=== PATIENT | male | born 1965 | race Two or more races ===

== ENCOUNTER 2017-12-23 13:25 | Outpatient (CLI) | payer OTHER | END 2017-12-23 13:26 | disposition home or self-care (01) | LOC: SC 13:25 | PROVIDERS: ATTEND Internal Medicine Pulmonary Disease | DX: G47.33 Obstructive sleep apnea (adult) (pediatric) (principal) | CPT/HCPCS: 99212; 99213 ==

== ENCOUNTER 2019-02-16 14:04 | Outpatient (CLI) | payer OTHER | END 2019-02-16 14:05 | disposition home or self-care (01) | LOC: SC 14:04 | PROVIDERS: ATTEND Internal Medicine Pulmonary Disease | DX: G47.33 Obstructive sleep apnea (adult) (pediatric) (principal) | CPT/HCPCS: 99212; 99213 ==

== ENCOUNTER 2019-04-20 14:17 | Outpatient (CLI) | payer OTHER ==
--- NOTE | 2019-04-20 16:42 | CONSULTATION NOTE ---
Information from patient questionnaire entered by Tasneem Marroquin. I have reviewed and concur with the information entered by Tasneem Marroquin. This document represents the service I personally performed and the decisions made by me, Kat Birmingham MD, [facility]. - History of Present Illness HPI: Mr. Marin was diagnosed to have moderate (AHI = 27.7) obstructive sleep apnea- hypopnea syndrome and returns today for annual follow up of CPAP therapy. The patient purchased the device from [employer] and was fitted with a ResMed A irTouch F-20 full face mask. He would like to switch company at this time. He continues to use the device nightly but not all the night. He thinks that the pressure of 5 - 15 cmH2O is comfortable (increased from 5 - 12 cmH2O two months ago for an elevated residual AHI of 7.9). On the CPAP therapy he notices improvement in his sleep quality, and that he wakes up feeling fresher in the morning and more awake/alert during the day. The average residual AHI is 9.7 (was 7.9); and large leak, 0 seconds a night. Equipment obtained from: [employer] - Compliance Data Reviewed with Patient Current pressure setting (cmH2O): 5-12 cmH2O Humidity settin Heated hose settin - Subjective Patient concerns: air blowing in eyes, dry mouth, nose, throat Initial Vanlue Sleepiness Scale score: 15 - Review of Systems Review of systems same as previous: Yes - Impression 1. Obstructive Sleep Apnea-Hypopnea Syndrome, moderate, with the patient continuing to have good compliance. The new autoCPAP setting is not any effective, most likely because the 90th percentile pressure remains about the same. To make the pressure go up, I will set his autoCPAP at 10 15 cmH2O. Because the patient would like to switch durable medical supplier, I will issue him a new prescription for supplies. - Plan Plan: 1. Raise autoCPAP to 10 - 15 cm H2O. 2. Prescription made for an oral appliance. 3. Prescription made for supplies so that he may switch durable medical supplier. 4. Try other full face masks, e.g. ResMed AirTouch Respironics DreamWear full face mask, and ResMed F30 full face mask. 5. Return for follow up in two months. This visit is time-based and I spent 15 minutes with the patient and more than 50% of the time was spent counseling the patient.
== END 2019-04-20 14:18 | disposition home or self-care (01) ==
LOC: SC 14:17
PROVIDERS: ATTEND Internal Medicine Pulmonary Disease
DX: G47.33 Obstructive sleep apnea (adult) (pediatric) (principal)
CPT/HCPCS: 99212; 99213

== ENCOUNTER 2019-04-23 23:31 | Emergency (ER) | payer OTHER ==
--- NOTE | 2019-04-24 00:06 | ED Physician Documentation ---
PD HPI HEAD INJURY - Stated complaint Stated Complaint: HEAD INJ - Chief complaint Chief Complaint: Laceration - History obtained from History obtained from: Patient - History of Present Illness Mechanism of head injury: Blow (He states he was working with a horse at home and he was bending over near it and it kicked and hit him in the head. He denied any loss of consciousness. He was dazed momentarily. There is no blurred vision ataxia no nausea. He has a laceration on the frontal scalp that was bleeding briskly. He applied direct pressure and came here immediately. 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) Location of injury: Right, Front Quality of pain: Throbbing, Aching Associated symptoms: No: LOC, AMS, Nausea / vomiting, Neck pain Symptoms worsen with: Palpation Contributing factors: No: Anticoagulated, Intoxicated Similar symptoms before: Has not had sx before Review of Systems Constitutional: denies: Fever Nose: denies: Rhinorrhea / runny nose, Congestion Throat: denies: Sore throat Respiratory: denies: Cough GI: denies: Nausea, Vomiting, Diarrhea Skin: reports: Laceration (s) (just today) Neurologic: denies: Focal weakness, Numbness, Confused, Altered mental status PD PAST MEDICAL HISTORY - Past Medical History Past Medical History: No Cardiovascular: Hypertension Respiratory: None Neuro: None Endocrine/Autoimmune: Type 2 diabetes GI: None : None HEENT: None Psych: None Musculoskeletal: None Derm: None - Past Surgical History Past Surgical History: No - Present Medications Home Medications: Ambulatory Orders Medication Instructions Recorded Confirmed Lisinopril 1 tab ORAL DAILY 04/08/19 04/08/19 Metformin HCl 1 tab ORAL BID 04/08/19 04/08/19 - Allergies Allergies/Adverse Reactions: Allergies Allergy/AdvReac Type Severity Reaction Status Date / Time No Known Drug Allergies Allergy Verified 04/23/19 23:45 - Social History Does the pt smoke?: Yes Smoking Status: Current every day smoker Does the pt drink ETOH?: Yes Does the pt have substance abuse?: No - Immunizations Immunizations are current?: Yes - POLST Patient has POLST: No PD ED PE NORMAL - Vitals Vital signs reviewed: Yes - General General: Alert and oriented X 3, No acute distress, Well developed/nourished - HEENT HEENT: PERRL, EOMI, Other (right frontal scalp with 3 cm lac withut FB. No bbleeding on arrival with direct pressure and dressing on it. 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, No motor deficit, No sensory deficit, Normal speech, Other Eye Opening: Spontaneous Motor: Obeys Commands Verbal: Oriented GCS Score: 15 - Psych Psych: Normal mood, Normal affect Results - Vitals Vitals: Vital Signs - 24 hr 04/23/19 04/24/19 23:37 00:55 Temperature 36.9 C Heart Rate 101 H 92 Respiratory 16 18 Rate Blood Pressure 152/87 H 130/74 O2 Saturation 95 92 Oxygen O2 Source Room air Procedures - Laceration (location) right frontal scalp Length in cm: 3 Wound type: Linear, Into subcut fat, Clean Anesthesia: Lidocaine 1% with epi Wound Preparation: Wound explored, To the base, Other (bleeding started again with cleaning wound. Stopped with subcut layer stitch.). No: FB identified Deep layer closure: Vicryl, size #-0 - enter number (6), # sutures - enter number (3) Skin layer closure: Nylon, Running, Size #-0 - enter number (6), Sutures - enter # (17) Other: Patient tolerated well, No complications, Dressing applied, Tetanus UTD PD MEDICAL DECISION MAKING - ED course Complexity details: considered differential (No concussive symptoms. He does have a scalp laceration in the upper frontal area but is bald in that area so did a cosmetic closure with 6-0 nylon with good closure.), d/w patient Departure - Departure Disposition: 01 Home, Self Care Clinical Impression: Head contusion Qualifiers: Encounter type: initial encounter Contusion of head detail: scalp Qualified Code(s): S00.03XA - Contusion of scalp, initial encounter Scalp laceration Qualifiers: Encounter type: initial encounter Qualified Code(s): S01.01XA - Laceration without foreign body of scalp, initial encounter Condition: Stable Record reviewed to determine appropriate education?: Yes Instructions: ED Laceration Scalp Stitch Or Stap Follow-Up: KING,CASTILLO M, DO [Primary Care Provider] - Comments: I would anticipate some localized headache where you were injured and perhaps even some feeling of lightheadedness for a day or 2. Tylenol or ibuprofen or naproxen as needed for pains. Return if signs of concussion such as confusion, off balance, nausea and vomiting, blurred vision, worsening headache, other concerns. It is okay to wash and shower. Clean off the wound twice a day with soap and water, or peroxide and water. Apply some antibiotic ointment to it to keep it moist. Also to watch for signs of infection such as purulence, redness or increasing pain. Return to your primary care or the ER at the specified time for suture removal. Suture removal 8 to 10 days. Discharge Date/Time: 04/24/19 00:55
[2019-04-24] MEDS ORDERED: IBUPROFEN 600 MG TABLET PO STA (00:42)
[2019-04-24] MEDS ORDERED: ACETAMINOPHEN 325 MG TABLET PO STA (00:42)
[2019-04-24 01:03] VITALS: BP 130/74
== END 2019-04-24 00:55 | disposition home or self-care (01) ==
LOC: ED 23:31
DX: S01.01XA Laceration without foreign body of scalp, initial encounter (principal); W55.12XA Struck by horse, initial encounter; Y93.F9 Activity, other caregiving; Y92.009 Unspecified place in unspecified non-institutional (private) residence as the place of occurrence of the external cause; I10 Essential (primary) hypertension; E11.9 Type 2 diabetes mellitus without complications; Z79.84 Long term (current) use of oral hypoglycemic drugs; F17.200 Nicotine dependence, unspecified, uncomplicated
CPT/HCPCS: 12032; 99282; A9270

== ENCOUNTER 2020-01-06 10:28 | Emergency (ER) | payer OTHER ==
[2020-01-06 10:51] VITALS: BP 150/65
--- NOTE | 2020-01-06 11:29 | ED Physician Documentation ---
PD HPI LOWER EXT INJURY - Stated complaint Stated Complaint: LT ANKLY INJURY - Chief complaint Chief Complaint: Trauma Ext - History obtained from History obtained from: Patient - Additional information Additional information: Patient comes emergency department complaining of left ankle pain and right small toe pain. Patient states the ankle pain began this morning when he walked out to the mailbox and twisted his left ankle. He states that he felt a "crack" and had instant pain around the lateral malleoli area. Patient states that it does not hurt if he is holding still but that when he bears weight, or has direct pressure applied to the area, he has a sharp pain. Patient denies any other injuries today. He states he is sprained his ankle many times but never had a fracture. He states his right small toe has been hurting for the last month since a 1700 pound horse stepped on it. The patient states that he noticed swelling and pain in the toe and that he wanted to come get it checked out, but because of clinic closures and concerns over coronavirus, he decided not to come in, thinking it would just get better. However, he has continued to have ongoing swelling and sharp pain in the toe and wonders if indeed it was fractured. Patient denies any other complaints at this time. Review of Systems Ten Systems: 10 systems reviewed and negative Constitutional: reports: Reviewed and negative Eyes: reports: Reviewed and negative Ears: reports: Reviewed and negative Nose: reports: Reviewed and negative Throat: reports: Reviewed and negative Cardiac: reports: Reviewed and negative Respiratory: reports: Reviewed and negative GI: reports: Reviewed and negative : reports: Reviewed and negative Skin: reports: Reviewed and negative Musculoskeletal: reports: Extremity pain, Extremity swelling Neurologic: reports: Reviewed and negative Psychiatric: reports: Reviewed and negative Endocrine: reports: Reviewed and negative Immunocompromised: reports: Reviewed and negative PD PAST MEDICAL HISTORY - Past Medical History Past Medical History: Yes Cardiovascular: Hypertension Respiratory: None Neuro: None Endocrine/Autoimmune: Type 2 diabetes GI: None : None HEENT: None Psych: None Musculoskeletal: None Derm: None - Past Surgical History Past Surgical History: No - Present Medications Home Medications: Ambulatory Orders Medication Instructions Recorded Confirmed Metformin HCl 1 tab ORAL BID 04/08/19 01/06/20 lisinopriL [Lisinopril] 1 tab ORAL DAILY 04/08/19 01/06/20 - Allergies Allergies/Adverse Reactions: Allergies Allergy/AdvReac Type Severity Reaction Status Date / Time No Known Drug Allergies Allergy Verified 01/06/20 10:50 - Social History Does the pt smoke?: Yes Smoking Status: Current every day smoker Does the pt drink ETOH?: Yes Does the pt have substance abuse?: No - Immunizations Immunizations are current?: Yes - POLST Patient has POLST: No PD ED PE NORMAL - Vitals Vital signs reviewed: Yes - General General: Alert and oriented X 3, No acute distress - HEENT HEENT: Atraumatic, PERRL, EOMI, Moist mucous membranes - Neck Neck: Supple, no meningeal sign - Cardiac Cardiac: Strong equal pulses - Respiratory Respiratory: No respiratory distress - Derm Derm: Normal color, Warm and dry, No rash, Other (No contusion) - Extremities Extremities: No deformity, Other (Patient has tenderness to palpation on the inferior aspect of his left Lateral malleolus. There is no deformity. Mild swelling. Patient has no tenderness over any of the other structures of his left foot or ankle. No step-off or deformity. Patient has moderate edema and generalized tenderness of his right small toe. No contusion.No deformity. No other right foot abnormalities. 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, No motor deficit, No sensory deficit, Normal speech - Psych Psych: Normal mood, Normal affect Results - Vitals Vitals: Vital Signs - 24 hr 01/06/20 10:47 Temperature 36.6 C Heart Rate 86 Respiratory 16 Rate Blood Pressure 150/65 H O2 Saturation 98 Oxygen O2 Source Room air - Rads (name of study) Left ankle x-ray Radiology: Final report received, EMP read indepedently, See rad report (Normal ankle) Right foot x-ray series Radiology: Final report received, EMP read indepedently, See rad report (Transverse fracture distal phalanx right small toe.) PD MEDICAL DECISION MAKING - ED course Complexity details: reviewed results, re-evaluated patient, considered differential, d/w patient ED course: Patient was worked up with x-rays of the left ankle and right foot. The left ankle x-ray was negative, but the right foot x-ray showed a fracture through the distal phalanx of the right small toe. I discussed the findings with the patient. We have given him an air cast for the left ankle, on which he may bear weight as tolerated and use crutches as needed. I have advised him that he may leave off use of the air cast when his ankle is feeling better. We have also discussed the need to limit high-impact or rotational forces on the ankle until it is completely feeling better. As far as the patient's toe fracture, I have discussed with him that at this point, there is no union between the bone ends. We have placed him in a postop shoe today, and I have advised him that he will need to wear this for some weeks to allow his toe to heal. I have given him the number for the [facility] in [place], where he should follow-up with Dr. Reyes. I have advised him to call in the next couple of days to make an appointment for this. Patient may also weight-bear as tolerated on his right foot, and should use the cast shoe for any ambulatory activities. Departure - Departure Disposition: 01 Home, Self Care Clinical Impression: Left ankle sprain Qualifiers: Encounter type: initial encounter Involved ligament of ankle: unspecified ligament Qualified Code(s): S93.402A - Sprain of unspecified ligament of left ankle, initial encounter Toe fracture, right Qualifiers: Encounter type: initial encounter Toe: lesser toe Fracture type: closed Phalanx: distal Fracture alignment: nondisplaced Qualified Code(s): S92.534A - Nondisplaced fracture of distal phalanx of right lesser toe(s), initial encounter for closed fracture Condition: Stable Instructions: ED Sprain Ankle W X Ray, ED Fx Toe Closed Follow-Up: Benny Reyes, DPM [Physician No Access] - Comments: Your left ankle x-ray looks good. Your right Foot x-ray shows a fracture through your small toe. This has not begun to heal back together at all yet, so it is very important that you wear the hard soled shoe that we have placed today. The most important goal is to keep your small toe from bending to allow the fracture to begin to heal. You will need to follow-up with podiatry as above to be sure that this is healing properly. You should wear the cast shoe that we have given you until you are seen by podiatry. The ankle brace you may wear until your ankle is feeling better. You may use crutches as needed and weight-bear as tolerated. Please refrain from any strenuous, high impact, or tw isting activities involving your left ankle until the ankle is feeling better. Please call the [facility] in [place] to set up an appointment at . Discharge Date/Time: 01/06/20 12:23
--- NOTE | 2020-01-06 11:41 | XRAY Report ---
Reason: pain with WB after twisting injury Procedure Date: 01/06/2020 Accession Number: [id number] / [id number] Procedure: XR - Ankle 3 View LT CPT Code: Final Report FULL RESULT: EXAM: LEFT ANKLE RADIOGRAPHY EXAM DATE: 01/06/2020 11:30 AM. CLINICAL HISTORY: Pain with weightbearing after twisting injury. COMPARISON: None. TECHNIQUE: 3 views. FINDINGS: Bones: Normal. No fractures or bone lesions. Joints: Normal. No ankle joint effusion. No subluxations. The ankle mortise is normally aligned. Soft Tissues: Normal. No soft tissue swelling. IMPRESSION: No fracture identified. RADIA
--- NOTE | 2020-01-06 11:43 | XRAY Report ---
Reason: horse stepped on toe, pain/edema x 1m, not better Procedure Date: 01/06/2020 Accession Number: [id number] / [id number] Procedure: XR - Foot 3 View RT CPT Code: Final Report FULL RESULT: EXAM: RIGHT FOOT RADIOGRAPHY EXAM DATE: 01/06/2020 11:30 AM. CLINICAL HISTORY: Horse stepped on toe, pain/edema x 1 month, not better. COMPARISON: None. TECHNIQUE: 3 views. FINDINGS: There is a transverse fracture at the 5th distal phalanx, without bridging callus. No subcutaneous radiopaque foreign bodies. No fractures detected elsewhere on current study. IMPRESSION: Fracture of the 5th distal phalanx. RADIA
== END 2020-01-06 12:23 | disposition home or self-care (01) ==
LOC: ED 10:28
DX: S92.531A Displaced fracture of distal phalanx of right lesser toe(s), initial encounter for closed fracture (principal); S93.402A Sprain of unspecified ligament of left ankle, initial encounter; X50.1XXA Overexertion from prolonged static or awkward postures, initial encounter; Y93.01 Activity, walking, marching and hiking; Y92.009 Unspecified place in unspecified non-institutional (private) residence as the place of occurrence of the external cause; E11.9 Type 2 diabetes mellitus without complications; I10 Essential (primary) hypertension; F17.200 Nicotine dependence, unspecified, uncomplicated; Z79.84 Long term (current) use of oral hypoglycemic drugs
CPT/HCPCS: 99283; 99284

== ENCOUNTER 2020-07-22 07:59 | Outpatient (CLI) | payer OTHER ==
--- NOTE | 2020-07-22 14:12 | MRI Report ---
PROCEDURE: Shoulder LT W/O INDICATIONS: LT SHOULDER PAIN TECHNIQUE: Noncontrast oblique coronal T2 fast spin echo with fat saturation, oblique sagittal T1 spin echo and T2 fast spin echo with fat saturation, axial T1 spin echo and T2 fast spin echo with fat saturation t hrough the shoulder. COMPARISON: None. FINDINGS: Image quality: Diagnostic. Rotator cuff: There is mild tendinopathy of the supraspinatus and infraspinatus with minimal articula r sided partial thickness tearing at the insertion of the infraspinatus. The subscapularis and teres minor appear intact. No rotator cuff muscle atrophy on sagittal images. Bones and bursae: No bone marrow contusions or fractures. There is moderate acromioclavicular joint degeneration. The acromion demonstrates conventional anatomy, without an os acromiale. Trace subacro mial/subdeltoid bursal fluid is present. Capsule and soft tissues: In the absence of intra-articular contrast, the labrum and glenohumeral li gaments are incompletely evaluated. The posterosuperior labrum is diminutive in appearance suggestive of degenerative tearing. The anterior and posterior inferior glenohumeral ligaments are thickened an d intermediate in signal with associated ligamentous edema along the axillary pouch. The findings may represent sequelae of moderate sprains. The long head of the biceps tendon demonstrates normal locat ion and morphology. There is mild indistinct edema in the rotator interval. IMPRESSION: 1. Thickening and intermediate signal intensity of the inferior glenohumeral ligaments with associate d periligamentous edema along the axillary pouch. The findings may represent sequelae of moderate spr ains. Given the presence of mild edema in the rotator interval, the differential also includes a caps ulitis. 2. Minimal articular sided partial thickness tearing at the insertion of the infraspinatus. No high-g rade or full-thickness rotator cuff tear. 3. Moderate acromioclavicular joint degeneration with trace subacromial/subdeltoid bursal fluid. 4. Suspected mild degenerative tearing in the posterosuperior labrum. Reviewed by: Noah Murrieta MD on 07/22/2020 2:11 PM PDT Approved by: Noah Murrieta MD on 07/22/2020 2:11 PM PDT Station ID: [id number]
== END 2020-07-22 08:00 | disposition home or self-care (01) ==
LOC: DI 07:59
PROVIDERS: ATTEND Family Medicine
DX: S46.822A Laceration of other muscles, fascia and tendons at shoulder and upper arm level, left arm, initial encounter (principal); M19.012 Primary osteoarthritis, left shoulder; R93.6 Abnormal findings on diagnostic imaging of limbs